=== PATIENT | female | born 1985 | race Caucasian/White ===

== ENCOUNTER 2023-09-29 15:09 | Emergency (ER) | payer OTHER, SELFPAY ==
[2023-09-29 15:16] VITALS: BP 142/96
--- NOTE | 2023-09-29 16:59 | ED.GENMED ---
History of Present Illness
General
Chief Complaint: Fainting/Passed Out
Source: patient
Time Seen by Provider: 09/29/23 16:41
History of Present Illness
History of Present Illness:
38yoF with no significant past medical history presenting for evaluation after a syncopal episode 2 days ago. Patient states she was sitting at the bar when she had a witnessed syncopal episode. She fell forward and struck her head. She denies any
preceding dizziness or other prodromal symptoms. She vomited immediately after the episode. She has been having ongoing headaches, vomiting, photophobia, and trouble with balance since then. She has been taking OTC medications without improvement.
She denies any chest pain, shortness of breath, palpitations. No personal or family history of heart issues. She denies chance of .
Past History
Past History
ED Past Medical History: None
ED Past Surgical History: Gynecological
Social History
Living: with family
Phy Exam
Physical Exam
Physical Exam:
Patient awake and alert. GCS 15. No external signs of head trauma. No cervical spine tenderness.
General Physical Exam
General Presentation: well appearing and no apparent distress
General age: appears stated age
General Skin: warm and dry
General Habitus: normal
General Mental: alert
Cardiovascular Exam
Cardiovascular Exam: regular rate/rhythm and no murmur
Pulmonary Exam
Pulmonary Exam: lungs clear, no respiratory distress, no crackles and no wheezing
Neurological Exam
Neurological Exam: alert, no motor deficits and normal gait
Beatris Coma Scale
Eye Opening: Spontaneous
Verbal Response: Oriented
Motor Response: Obeys Commands
GCS Total Score: 15
Skin Exam
Skin Exam: normal color and warm/dry
Psychiatric Exam
Psychiatric Exam: normal mood/affect
Course
Orders/Labs/Results
Orders:
Orders
09/29/23 15:19
CT Head W/o Iv Contrast Urgent
Comment:
Reason For Exam: head injury since friday + woozy/dizzy
09/29/23 17:00
0.9% Sodium Chloride 1000 ml [Nss] 1,000 ml IV BOLUS
Ketorolac [Toradol] 15 mg IV NOW STA
Test Result ONCE
09/29/23 17:12
Basic Metabolic Panel Urgent
Complete Blood Count/With Diff Urgent
HCG, Urine Qualitative Screen Urgent
Date Specimen was Collected: 09/29/23
Time Specimen was Collected: 17:04
Troponin I Urgent
09/29/23 17:31
Electrocardiogram (*1) Urgent
Reason for Study: Vertigo / Dizzy
EKG- Treatment ONCE
Abnormal Lab Results
09/29/23
17:12
MPV 11.4 H fL
(7.4-10.4)
Absolute Neuts (auto) 8.0 H 10^3/uL
(1.4-6.5)
Neutrophils % 77.1 H %
(42.2-75.2)
Lymphocytes % 13.8 L %
(20.5-51.1)
09/29/23 17:12
09/29/23 17:12
Vital Signs
Initial and Last Documented VS:
Initial Vital Signs
Temp Pulse Resp BP Pulse Ox
98.0 F 112 16 142/96 98
09/29/23 15:16 09/29/23 15:16 09/29/23 15:16 09/29/23 15:16 09/29/23 15:16
Last Documented Vital Signs
Temp Pulse Resp BP Pulse Ox
98.0 F 80 18 104/64 99
09/29/23 15:16 09/29/23 18:27 09/29/23 18:27 09/29/23 18:27 09/29/23 18:27
MDM/Problems Addressed
Differential Diagnosis Includes:
38yoF presenting after a head injury 2 days ago after a syncopal episode. No prodromal symptoms prior to losing consciousness. C/o headache and photophobia. No CP/SOB. She is well appearing in no distress. She is afebrile and hemodynamically stable.
No external signs of head trauma on exam. Exam is otherwise asymptomatic. Differential diagnosis includes but is not limited to: closed head injury, concussion, intracranial hemorrhage, skull fracture
Initial ED plan: Check cardiac labs, HCG, EKG, and CT head. IV Toradol and fluid bolus for symptoms.
*EKG
Interpreted by ED Provider?: Yes
EKG Intrepretation Date: 09/29/23
Heart Rate: 78
Rate: normal
Rhythm: sinus
[place]: normal axis
Interval: normal interval
QRS Pattern: normal QRS
Ischemia: no ischemia
*Critical Care Note
Total Time (30-74mins, 75-104mins- exclusive of procedures): Not Applicable
Update Note
Update Note:
Labs unremarkable including normal hemoglobin and glucose. EKG shows NSR without ectopy or ischemic changes. Troponin normal. HCG negative. CT head is negative for traumatic injuries. Patient feeling improved on reassessment and vitals remain
normal. She is stable for discharge. Script provided for [place]. Advised close PCP follow-up. ED return precautions discussed. Patient discharged in stable condition.
ED Attending Note
-
Portions of this chart may have been created with voice recognition software.� Occasional wrong word or��sound alike� substitutions may have occurred due to the inherent limitations of voice recognition software.
Discharge Plan
Departure
Patient Disposition: Home (Routine Discharge)
Date of Disposition: 09/29/23
Time of Disposition: 18:29
Patient with high blood pressure during this ER visit?: No
Discharge Problem:
Syncope, Closed head injury, Nausea & vomiting
Prescriptions:
New
ondansetron 4 mg tablet,disintegrating
4 mg PO Q6H PRN (Reason: nausea and vomiting) Qty: 20 0RF
No Action
Vitamins
1 mg PO DAILY
oxycodone-acetaminophen 5 MG/325 MG tablet
1 tab PO Q4HPRN PRN (Reason: moderate pain) Qty: 18 0RF
oxycodone-acetaminophen 5 MG/325 MG tablet
2 tab PO Q6HPRN PRN (Reason: severe pain) Qty: 0 0RF
ibuprofen 600 MG tablet
600 mg PO Q4HPRN PRN (Reason: moderate pain/cramps) Qty: 30 0RF
Referrals:
NONE,* [Family Provider] -
Stand Alone Forms: Return to Work
Activity Restrictions/Additional Instructions:
Drink plenty of fluids and rest. Take Zofran as needed for nausea.
Please follow-up with your family doctor. Return to the ER with any new or worsening symptoms.
Interventions
Interventions:
*Risk Screen - Suicide Last Done: 09/29/23 17:29
*General Assessment Last Done: 09/29/23 17:29
*Neglect/Abuse Screening Last Done: 09/29/23 17:29
*Nursing Disposition Last Done: 09/29/23 18:32
ED- Cardiac Assessment Last Done: 09/29/23 17:29
ED- Neurological Assessment Last Done: 09/29/23 17:29
Discharge Date and Time
Discharge Date/Time: 09/29/23 18:34
Print Language: PASHTO
[2023-09-29] MEDS: NSS 1000 IV (17:21)
[2023-09-29] MEDS: TORADOL 15 MG IV (17:21)
[2023-09-29 17:27] LABS: % Basophils 0.4 % (0-2); % Eosinophils 3.9 % (0-6); % Immature Granulocytes 0.3 % (0-0.5); % Lymphocytes 13.8 % (20.5-51.1); % Monocytes 4.5 % (1.7-9.3); % Neutrophils 77.1 % (42.2-75.2); Absolute Eosinophils 0.4 10^3/uL (0-0.7); Absolute Lymphocytes 1.4 10^3/uL (1.2-3.4); Absolute Monocytes 0.5 10^3/uL (0.1-0.6); Hematocrit 41.8 % (37.0-47.0); Hemoglobin 13.8 g/dL (12.0-16.0); Mean Corpuscular Hgb 27.1 pg (27.0-31.0); Mean Corpuscular Volume 82.1 fL (81.0-99.0); Mean Platelet Volume 11.4 fL (7.4-10.4); Nucleated Red Blood Cells % 0 %; Platelet Count 279 10^3/uL (130-400); Red Blood Cell Count 5.09 10^6/uL (4.20-5.40); Red Cell Dist. Width 13.2 % (11.5-14.5); White Blood Cell Count 10.3 10^3/uL (4.8-10.8)
[2023-09-29 17:35] LABS: HCG, Urine Qualitative Screen Negative
[2023-09-29 17:41] LABS: Blood Urea Nitrogen 15 mg/dl (7-17); Calcium 9.9 mg/dl (8.4-10.2); Carbon Dioxide 22 mmol/L (22-30); Chloride 104 mmol/L (98-107); Glucose 92 mg/dl (70-99); Potassium 4.4 mmol/L (3.5-5.1); Sodium 138 mmol/L (135-145); eGFR > 60.00
[2023-09-29 17:43] LABS: Troponin I < 0.012 ng/ml
[2023-09-29 18:27] VITALS: BP 104/64
== END 2023-09-29 18:34 | disposition home or self-care (01) ==
LOC: EMR 15:09
PROVIDERS: Physician Assistant; EMERGENCY PHYSICIAN Emergency Medicine
DX: R55 Syncope and collapse (principal); R42 Dizziness and giddiness; S09.90XA Unspecified injury of head, initial encounter; X58.XXXA Exposure to other specified factors, initial encounter; R11.2 Nausea with vomiting, unspecified
CPT/HCPCS: 99284; 96374; 96361; 70450; 80048; 81025; 84484; 85025; 93005